=== PATIENT | male | born 1950 | race Caucasian/White ===

== ENCOUNTER 2023-09-08 17:33 | Inpatient (IN) ==
[2023-09-08] MEDS: Lactated Ringers 1000 ml BAG IV.FLUID IV ONE (18:50)
[2023-09-08 18:54] LABS: ABS Basophils 0.1 10^3/uL (0.0-0.1); ABS Eosinophils 0.3 10^3/uL (0.0-0.5); ABS Lymphocytes 1.2 10^3/uL (1.0-4.8); ABS Monocytes 0.7 10^3/uL (0.0-1.1); ABS Neutrophils 4.4 10^3/uL (1.5-7.6); ABS Nucleated RBC 0.01 10^3/ul; Eosinophil % 4.7 %; Hemoglobin 10.7 g/dL (13.2-16.3); Lymphocyte % 17.8 %; Mean Corpuscular Hemoglobin 31.3 pg (27-33); Mean Corpuscular Hgb Conc 33.5 g/dL (31-36); Mean Corpuscular Volume 93.3 fL (80-97); Mean Platelet Volume 7.5 fL (7.5-11.2); Nucleated Red Blood Cells % 0.1 %/100WBC (0.0-0.8); Platelet Count 199 10^3/uL (150-450); Red Blood Count 3.43 10^6/uL (4.06-5.63); Red Cell Distribution Width 12.6 % (12-17); White Blood Count 6.7 10^3/uL (3.6-10.2)
[2023-09-08 19:46] LABS: Albumin 4.2 g/dL (3.2-5.2); Albumin/Globulin Ratio 1.6 (1-3); Calcium 9.7 mg/dL (8.6-10.3); Creatinine, Serum 14.96 mg/dL (0.67-1.17); Globulin 2.6 g/dL (2-4); Potassium 5.5 mmol/L (3.5-5.0); Total Bilirubin 0.4 mg/dL (0.2-1.0); Total Protein 6.8 g/dL (6.4-8.9); eGFR CKD-EPI 3.1 (>60)
[2023-09-08 23:51] LABS: ABS Eosinophils 0.1 10^3/uL (0.0-0.5); ABS Lymphocytes 0.7 10^3/uL (1.0-4.8); ABS Monocytes 0.5 10^3/uL (0.0-1.1); Eosinophil % 0.9 %; Hemoglobin 10.1 g/dL (13.2-16.3); Lymphocyte % 9.8 %; Mean Corpuscular Hgb Conc 34.8 g/dL (31-36); Mean Platelet Volume 7.2 fL (7.5-11.2); Platelet Count 183 10^3/uL (150-450); Red Blood Count 3.15 10^6/uL (4.06-5.63); Red Cell Distribution Width 12.7 % (12-17); White Blood Count 7.3 10^3/uL (3.6-10.2)
[2023-09-09 01:21] LABS: Calcium 8.9 mg/dL (8.6-10.3); Creatinine, Serum 14.81 mg/dL (0.67-1.17); eGFR CKD-EPI 3.1 (>60)
[2023-09-09] MEDS ORDERED: hydrALAZINE 20 mg/ml 1 ML Vial IV IV SLOW PU PRN (01:28)
[2023-09-09] MEDS: Sodium Bicarbonate 8.4% 75 MEQ in HNS 0.45% 1000 ML BAG IV SCH (02:57)
[2023-09-09] MEDS: NS 0.45% 1000 ml BAG 1,000 ML IV SCH ×2 (02:57→15:07)
[2023-09-09 03:46] LABS: Urine Appearance Turbid; Urine Color Red; Urine Specific Gravity 1.015 (1.002-1.030)
[2023-09-09 03:58] LABS: Urine Bacteria Absent /HPF (Absent); Urine Red Blood Cell 3+(>10/hpf) /HPF (0-Trace); Urine White Blood Cell 1+(6-10/hpf) /HPF (0-Trace)
[2023-09-09 07:30] LABS: ABS Lymphocytes 0.9 10^3/uL (1.0-4.8); ABS Monocytes 0.5 10^3/uL (0.0-1.1); ABS Neutrophils 6.2 10^3/uL (1.5-7.6); ABS Nucleated RBC 0.01 10^3/ul; Eosinophil % 0.3 %; Hematocrit 32.4 % (38-53); Hemoglobin 11.3 g/dL (13.2-16.3); Lymphocyte % 11.3 %; Mean Corpuscular Hemoglobin 32.2 pg (27-33); Mean Corpuscular Hgb Conc 34.8 g/dL (31-36); Mean Corpuscular Volume 92.6 fL (80-97); Mean Platelet Volume 7.9 fL (7.5-11.2); Nucleated Red Blood Cells % 0.1 %/100WBC (0.0-0.8); Platelet Count 194 10^3/uL (150-450); Red Cell Distribution Width 12.3 % (12-17); White Blood Count 7.6 10^3/uL (3.6-10.2)
[2023-09-09 09:17] LABS: Creatinine, Serum 14.03 mg/dL (0.67-1.17); Potassium 5.5 mmol/L (3.5-5.0); eGFR CKD-EPI 3.3 (>60)
[2023-09-09] MEDS: Sodium Bicarb 8.4% Vial 50 ML 150 MEQ in D5W 1000 ml BAG 850 ML IV SCH ×2 (11:05→21:46)
[2023-09-09 15:36] LABS: Calcium 8.8 mg/dL (8.6-10.3); Creatinine, Serum 10.82 mg/dL (0.67-1.17); Magnesium 1.5 mg/dL (1.9-2.7); Potassium 4.3 mmol/L (3.5-5.0); eGFR CKD-EPI 4.5 (>60)
[2023-09-09] MEDS: Magnesium Sulf 4 GM/100 ML IV 4,000 MG/100 ML BAG IVPB ONE ×2 (16:25→22:07)
[2023-09-09 23:57] LABS: Creatinine, Serum 7.12 mg/dL (0.67-1.17); Magnesium 3.2 mg/dL (1.9-2.7); Potassium 3.5 mmol/L (3.5-5.0); eGFR CKD-EPI 7.5 (>60)
[2023-09-10 05:27] LABS: ABS Eosinophils 0.4 10^3/uL (0.0-0.5); ABS Lymphocytes 1.4 10^3/uL (1.0-4.8); ABS Monocytes 1.3 10^3/uL (0.0-1.1); ABS Neutrophils 6.1 10^3/uL (1.5-7.6); ABS Nucleated RBC 0.01 10^3/ul; Hemoglobin 9.7 g/dL (13.2-16.3); Lymphocyte % 15.5 %; Mean Corpuscular Hemoglobin 32.5 pg (27-33); Mean Corpuscular Hgb Conc 35.8 g/dL (31-36); Mean Platelet Volume 7.5 fL (7.5-11.2); Nucleated Red Blood Cells % 0.1 %/100WBC (0.0-0.8); Platelet Count 167 10^3/uL (150-450); Red Blood Count 2.97 10^6/uL (4.06-5.63); Red Cell Distribution Width 12.7 % (12-17); White Blood Count 9.2 10^3/uL (3.6-10.2)
[2023-09-10 05:55] LABS: Calcium 7.9 mg/dL (8.6-10.3); Creatinine, Serum 5.7 mg/dL (0.67-1.17); Magnesium 3.4 mg/dL (1.9-2.7); Potassium 3.5 mmol/L (3.5-5.0); eGFR CKD-EPI 9.8 (>60)
[2023-09-10] MEDS: NS 0.9% 1000 ml BAG 1,000 ML IV SCH (11:33)
[2023-09-11 06:07] LABS: ABS Eosinophils 0.6 10^3/uL (0.0-0.5); ABS Lymphocytes 1.4 10^3/uL (1.0-4.8); ABS Neutrophils 4.6 10^3/uL (1.5-7.6); Hematocrit 27.3 % (38-53); Hemoglobin 9.4 g/dL (13.2-16.3); Lymphocyte % 17.8 %; Mean Corpuscular Hemoglobin 31.9 pg (27-33); Mean Corpuscular Hgb Conc 34.6 g/dL (31-36); Mean Corpuscular Volume 92.1 fL (80-97); Mean Platelet Volume 7.7 fL (7.5-11.2); Platelet Count 154 10^3/uL (150-450); Red Blood Count 2.96 10^6/uL (4.06-5.63); Red Cell Distribution Width 12.6 % (12-17); White Blood Count 7.6 10^3/uL (3.6-10.2)
[2023-09-11 06:24] LABS: Creatinine, Serum 2.83 mg/dL (0.67-1.17); Potassium 3.7 mmol/L (3.5-5.0); eGFR CKD-EPI 22.7 (>60)
[2023-09-11] MEDS: NS 0.9% 1000 ml BAG 1,000 ML IV SCH (10:46)
[2023-09-12 06:02] LABS: ABS Basophils 0.1 10^3/uL (0.0-0.1); ABS Eosinophils 0.7 10^3/uL (0.0-0.5); ABS Lymphocytes 1.4 10^3/uL (1.0-4.8); ABS Neutrophils 4.1 10^3/uL (1.5-7.6); Eosinophil % 9.4 %; Hematocrit 25.3 % (38-53); Hemoglobin 8.7 g/dL (13.2-16.3); Lymphocyte % 18.9 %; Mean Corpuscular Hemoglobin 31.7 pg (27-33); Mean Corpuscular Hgb Conc 34.3 g/dL (31-36); Mean Corpuscular Volume 92.3 fL (80-97); Mean Platelet Volume 7.2 fL (7.5-11.2); Platelet Count 166 10^3/uL (150-450); Red Blood Count 2.74 10^6/uL (4.06-5.63); Red Cell Distribution Width 12.8 % (12-17); White Blood Count 7.2 10^3/uL (3.6-10.2)
[2023-09-12 06:24] LABS: Creatinine, Serum 1.87 mg/dL (0.67-1.17); Potassium 3.8 mmol/L (3.5-5.0); eGFR CKD-EPI 37.3 (>60)
[2023-09-12 10:57] VITALS: BP 137/67
== END 2023-09-12 14:28 | disposition home or self-care (01) | DRG 683 ==
LOC: ED 17:33 → EDHOLD 17:33 → MEDTELE 09-09 01:18 → SSU 09-09 12:24
PROVIDERS: ADMIT Hospitalist; ATTEND Internal Medicine

== ENCOUNTER 2023-12-01 09:49 | Inpatient (IN) ==
[~2023-12-01 09:49] MED LIST: Metoclopramide 5 MG/ML VIAL (10 mg) IV PRN; Naloxone 0.4 mg VIAL 0.4 mg/ml 1 ml VIAL IV PRN; Ondansetron 4 mg VIAL 2 MG/ML 2 ml VIAL IV PRN
[2023-12-01] MEDS ORDERED: ceFAZolin 2 GM PREMIX 2 GM/50 ML BAG ONE (10:30)
[2023-12-01] MEDS ORDERED: Ondansetron 4 mg VIAL 2 MG/ML 2 ml VIAL IV PRN (11:39)
[2023-12-01] MEDS ORDERED: Midazolam 2 mg/2 ml VIAL 1 mg/ml 2 ml VIAL (2 mg) ONE (12:05)
[2023-12-01] MEDS ORDERED: Lidocaine 2% PF 5 ML VIAL ONE (12:05)
[2023-12-01] MEDS ORDERED: Ondansetron 4 mg VIAL 2 MG/ML 2 ml VIAL ONE (12:05)
[2023-12-01] MEDS ORDERED: Propofol 10 MG/ML 20 ML BTL ONE (12:05)
[2023-12-01] MEDS ORDERED: fentaNYL 250 mcg/5 ml 50 MCG/ML 5 ml VIAL (250 MCG) ONE (12:05)
[2023-12-01] MEDS ORDERED: Dexamethasone IV 4 MG/ML VIAL 1 ml VIAL ONE (12:05)
[2023-12-01] MEDS ORDERED: Rocuronium 50 mg VIAL 10 mg/ml 5 ml VIAL (50 mg) ONE ×2 (12:05→13:58)
[2023-12-01] MEDS ORDERED: Bupivacaine 0.25% SDV 30 ML ONE (12:25)
[2023-12-01 12:53] LABS: Hemoglobin 12.6 g/dL (13.2-16.3); Mean Corpuscular Hemoglobin 30.3 pg (27-33); Mean Corpuscular Hgb Conc 33.2 g/dL (31-36); Mean Corpuscular Volume 91.3 fL (80-97); Mean Platelet Volume 6.7 fL (7.5-11.2); Platelet Count 209 10^3/uL (150-450); Red Blood Count 4.17 10^6/uL (4.06-5.63); Red Cell Distribution Width 14.3 % (12-17); White Blood Count 5.7 10^3/uL (3.6-10.2)
[2023-12-01] MEDS ORDERED: Phenylephrine 40 mcg/mL 10mL (400mcg) SYRINGE ONE (13:09)
[2023-12-01 13:10] LABS: Calcium 9.5 mg/dL (8.6-10.3); Creatinine, Serum 1.42 mg/dL (0.67-1.17); Potassium 4.1 mmol/L (3.5-5.0); eGFR CKD-EPI 51.9 (>60)
[2023-12-01] MEDS ORDERED: Sevoflurane BOTTLE ONE (14:11)
[2023-12-01] MEDS ORDERED: fentaNYL 100 mcg/2 ml 50 MCG/ML VIAL ONE ×2 (15:55→17:17)
[2023-12-01] MEDS: fentaNYL 100 mcg/2 ml 50 MCG/ML VIAL IV PRN (16:00)
[2023-12-01 16:10] LABS: Rapid COVID-19 Molecular Undetected (Undetected)
[2023-12-01] MEDS ORDERED: Acetaminophen IV 1 GM/100ML 1,000 MG/100 ML BAG IV ONE (16:52)
[2023-12-01] MEDS: Acetaminophen IV 1 GM/100ML 1,000 MG/100 ML BAG IV ONE (17:05)
[2023-12-01] MEDS: BUPIVACAINE **LIPOSOME/PF 13.3 MG/ML (266MG/ 20ML) VIAL (RESTRICTED) INFIL ONE (17:41)
[2023-12-01] MEDS: Neomycin/Polym/Bacit TOP OINT 15 GM TOPICAL SCH (17:41)
[2023-12-01] MEDS: Lactated Ringers 1000 ml BAG 1,000 ML IV SCH (17:41)
[2023-12-01] MEDS: Buffered Lidocaine 1% SYRIN 1 ml INTRADERM ONE (17:42)
[2023-12-01] MEDS: NS 0.9% 1000 ml BAG 1,000 ML IV SCH (18:10)
[2023-12-01 20:13] LABS: ABS Lymphocytes 0.6 10^3/uL (1.0-4.8); ABS Monocytes 0.3 10^3/uL (0.0-1.1); ABS Neutrophils 9.5 10^3/uL (1.5-7.6); Eosinophil % 0.1 %; Hematocrit 38.1 % (38-53); Hemoglobin 12.8 g/dL (13.2-16.3); Lymphocyte % 5.4 %; Mean Corpuscular Hemoglobin 31.3 pg (27-33); Mean Corpuscular Hgb Conc 33.7 g/dL (31-36); Mean Platelet Volume 6.5 fL (7.5-11.2); Platelet Count 183 10^3/uL (150-450); White Blood Count 10.4 10^3/uL (3.6-10.2)
[2023-12-01 20:47] LABS: Calcium 8.9 mg/dL (8.6-10.3); Potassium 5.2 mmol/L (3.5-5.0); eGFR CKD-EPI 34.4 (>60)
[2023-12-02] MEDS: Magnesium Hydroxide LIQ 30 ML UDC PO SCH (00:49)
[2023-12-02 06:32] LABS: Hematocrit 36.5 % (38-53); Hemoglobin 12.1 g/dL (13.2-16.3); Mean Corpuscular Hemoglobin 30.6 pg (27-33); Mean Corpuscular Hgb Conc 33.2 g/dL (31-36); Mean Corpuscular Volume 92.2 fL (80-97); Mean Platelet Volume 6.9 fL (7.5-11.2); Platelet Count 217 10^3/uL (150-450); Red Blood Count 3.96 10^6/uL (4.06-5.63); Red Cell Distribution Width 14.4 % (12-17); White Blood Count 9.9 10^3/uL (3.6-10.2)
[2023-12-02 06:58] LABS: Calcium 8.4 mg/dL (8.6-10.3); Creatinine, Serum 2.47 mg/dL (0.67-1.17); Potassium 4.8 mmol/L (3.5-5.0); eGFR CKD-EPI 26.7 (>60)
[2023-12-02 09:34] VITALS: BP 121/76
== END 2023-12-02 14:05 | disposition home or self-care (01) | DRG 658 ==
LOC: SSU 09:49 → OR 09:49
PROVIDERS: ADMIT Urology; ATTEND Urology

== ENCOUNTER 2024-01-19 07:59 | Observation (INO) ==
[~2024-01-19 07:59] MED LIST changes: -Metoclopramide 5 MG/ML VIAL (10 mg) IV PRN; -Naloxone 0.4 mg VIAL 0.4 mg/ml 1 ml VIAL IV PRN; -Ondansetron 4 mg VIAL 2 MG/ML 2 ml VIAL IV PRN; +Propofol 10 mg/ml 100 ML BTL 2,000 MG/200 ML BTL ONE
[2024-01-19] MEDS ORDERED: fentaNYL 100 mcg/2 ml 50 MCG/ML VIAL IV PRN (08:26)
[2024-01-19] MEDS ORDERED: Naloxone 0.4 mg VIAL 0.4 mg/ml 1 ml VIAL IV PRN (08:26)
[2024-01-19] MEDS ORDERED: Prochlorperazine 5 mg/ml 2 ml VIAL (10 mg) IV PRN (08:26)
[2024-01-19] MEDS ORDERED: Famotidine IV 10 MG/ML 2 ml VIAL (20 mg) ONE (09:11)
[2024-01-19] MEDS: Lactated Ringers 1000 ml BAG 1,000 ML IV SCH (09:13)
[2024-01-19] MEDS ORDERED: Propofol 10 MG/ML 20 ML BTL ONE ×2 (09:14→10:35)
[2024-01-19] MEDS ORDERED: fentaNYL 250 mcg/5 ml 50 MCG/ML 5 ml VIAL (250 MCG) ONE (09:14)
[2024-01-19] MEDS ORDERED: Ondansetron 4 mg VIAL 2 MG/ML 2 ml VIAL ONE (09:14)
[2024-01-19] MEDS: Famotidine IV 10 MG/ML 2 ml VIAL (20 mg) IV ONE (09:14)
[2024-01-19] MEDS ORDERED: Midazolam 2 mg/2 ml VIAL 1 mg/ml 2 ml VIAL (2 mg) ONE (09:14)
[2024-01-19] MEDS ORDERED: Lidocaine 2% PF 5 ML VIAL ONE (09:14)
[2024-01-19] MEDS: Buffered Lidocaine 1% SYRIN 1 ml INTRADERM ONE (09:15)
[2024-01-19 09:23] LABS: Rapid COVID-19 Molecular Undetected (Undetected)
[2024-01-19] MEDS ORDERED: Ondansetron 4 mg VIAL 2 MG/ML 2 ml VIAL IV PRN (09:54)
[2024-01-19 09:56] LABS: Albumin 4.7 g/dL (3.2-5.2); Albumin/Globulin Ratio 1.6 (1-3); Calcium 9.6 mg/dL (8.6-10.3); Creatinine, Serum 4.93 mg/dL (0.67-1.17); Globulin 2.9 g/dL (2-4); Potassium 4.5 mmol/L (3.5-5.0); Total Bilirubin 0.9 mg/dL (0.2-1.0); Total Protein 7.6 g/dL (6.4-8.9); eGFR CKD-EPI 11.6 (>60)
[2024-01-19] MEDS ORDERED: fentaNYL 100 mcg/2 ml 50 MCG/ML VIAL ONE (10:36)
[2024-01-19] MEDS ORDERED: Dexamethasone IV 4 MG/ML VIAL 1 ml VIAL ONE (10:39)
[2024-01-19] MEDS ORDERED: Phenylephrine 40 mcg/mL 10mL (400mcg) SYRINGE ONE (10:41)
[2024-01-19] MEDS ORDERED: Furosemide 20 mg/2 ml IV VIAL ONE (11:11)
[2024-01-19] MEDS ORDERED: Lidocaine 2% JELLY 6 ML Topical TOPICAL ONE (11:45)
[2024-01-19] MEDS: NS 0.9% 1000 ml BAG 1,000 ML IV SCH (13:09)
[2024-01-19] MEDS: Gentamicin ADULT 360 MG in NS 0.9% 100 ml BAG 100 ML IVPB ONE (13:11)
[2024-01-19] MEDS: Ampicillin ADVAN 2 GM in NS 0.9% 100 ML 100 ML IVPB ONE (13:11)
[2024-01-19] MEDS: Neomycin/Polym/Bacit TOP OINT 15 GM TOPICAL SCH (13:17)
[2024-01-19] MEDS: Magnesium Hydroxide LIQ 30 ML UDC PO SCH (21:03)
[2024-01-20 09:53] VITALS: BP 132/71
[2024-01-20] MEDS: Cholecalciferol (VIT D3) 400 units TAB PO SCH (10:30)
== END 2024-01-20 12:30 | disposition home or self-care (01) ==
LOC: SSU 07:59 → OR 07:59
PROVIDERS: ADMIT Urology; ATTEND Urology